=== PATIENT | female | born 1975 | race Caucasian/White ===

== ENCOUNTER 2017-10-10 16:00 | Emergency (ER) | payer OTHER, SELFPAY ==
[2017-10-10 16:00] VITALS: BP 149/91; PULSE 110; RESP 20; TEMP 36.8; O2SAT 100; BMI 36.4
[2017-10-10 16:13] VITALS: BP 146/99; PULSE 102; RESP 11; O2SAT 100
--- NOTE | 2017-10-10 16:24 | ED.DCSUM_ITS ---
- ER Visit Summary Date of Service: 10/10/17 Chief Complaint: Rash and itching History of Present Illness: The patient is a 42 F status post epidural steroid injection for back pain on Friday. [place] [facility] [place] states he was doing well the next day she developed a rash and itching. She denies any weakness in her lower extremities. She denies any bowel or bladder incontinence. She denies any fever. She has had a prior microdiscectomy of the lumbar spine. Physical Examination: Pulse is 100% room air no signs of hypoxia. No distress. HEENT exam. Posterior pharynx normal. Trouble swallowing or breathing. Lips are unremarkable. Tongue is not significantly swollen. Neck nontender. Lungs clear to auscultation bilaterally. No wheezing. Heart regular rhythm no murmur rate about 100. Abdomen soft nontender. She is moving all 4 extremities. Neurovascular intact. Cauda equina. No saddle anesthesia. She does have a rash that is sandpaper red minimally raised on her upper extremities. No petechiae or purpura. Back unremarkable. Epidural injection site appears normal. Neurologic exam normal. No sensory or motor deficits. Test Results: None Emergency Department Course and Treatment: Patient be treated with oral steroids. This is most like an allergic reaction may or may not be due to the injection. Otherwise she looks well. She and her understand we do not do allergy testing in the ER. Treatment Plan: Prednisone first dose in the year and then 40 mg a day as needed. Disposition: Discharged Impression: Acute rash with itching secondary to allergic reaction. This note was generated with [employer] dictation software. It may contain incorrect words, spelling, and punctuation that were not noted in review of the chart prior to signing ED Disposition - Plan for ED Patient: Chief Complaint: Numb/Ting Referrals: Eriberto Means MD [Primary Care Provider] -
--- NOTE | 2017-10-10 16:24 | ED.DEP ---
ED Disposition - Plan for ED Patient: Disposition: Home or Assisted Living Chief Complaint: Numb/Ting Instructions: ED Drug React Allergic Prescriptions: Prednisone [Deltasone] 40 mg PO DAILY 6 Days tab Referrals: Eriberto Means MD [Primary Care Provider] - As Needed Additional Instructions: His own daily for the allergic reaction. If the rash resolves and itching resolved you can stop taking the prednisone. Benadryl as needed for the itching. Return if feeling a lot worse but otherwise this should improve and resolve over the next 72 hours.
[2017-10-10] MEDS: predniSONE 20 MG Tablet 60 MG PO (16:33)
[2017-10-10 16:34] VITALS: BP 130/86; PULSE 98; RESP 17
[2017-10-10 16:38] VITALS: PULSE 98; RESP 17; O2SAT 100
== END 2017-10-10 16:38 | disposition home or self-care (01) ==
LOC: ED 16:30
PROVIDERS: Emergency Provider Emergency Medicine; Family Provider Family Medicine; PCP Family Medicine
DX: R21 Rash and other nonspecific skin eruption (principal); T78.40XA Allergy, unspecified, initial encounter; X58.XXXA Exposure to other specified factors, initial encounter; I10 Essential (primary) hypertension; Z79.52 Long term (current) use of systemic steroids; Z79.899 Other long term (current) drug therapy; Z90.710 Acquired absence of both cervix and uterus
CPT/HCPCS: 99283

== ENCOUNTER → 2019-10-06 | Outpatient (CLI) | payer OTHER, SELFPAY ==
[2019-10-06 16:37] VITALS: BMI 36.4
== END | disposition home or self-care (01) ==
LOC: LABSPEC 18:08
PROVIDERS: PCP Family Medicine; Referring Provider Physician Assistant; Visit Provider Physician Assistant
DX: Z20.828 Contact with and (suspected) exposure to other viral communicable diseases (principal); R50.9 Fever, unspecified; R05 Cough; M79.10 Myalgia, unspecified site; R11.0 Nausea; R19.7 Diarrhea, unspecified; R53.83 Other fatigue; R51 Headache
CPT/HCPCS: 87635; G2023; U0003

== ENCOUNTER 2022-04-27 08:51 | Emergency (ER) | payer OTHER, SELFPAY ==
[2022-04-27 08:52] VITALS: BP 142/98; PULSE 100; RESP 20; TEMP 36.3; O2SAT 100; BMI 34.9
--- NOTE | 2022-04-27 09:07 | RAD_ITS ---
STUDY: X-RAY - RIGHT KNEE REASON FOR EXAM: Female, 47 years old. pain TECHNIQUE: 4 view(s) of the knee. COMPARISON: None. FINDINGS: Normal visualized distal femur. Normal visualized proximal tibia and fibula. Normal proximal tibiofibular articulation. There is no demonstrated fracture. There is moderate degenerative arthrosis of the medial femorotibial compartment with moderate joint space narrowing. There is mild degenerative arthrosis of the lateral femorotibial compartment. There is mild degenerative arthrosis of the patellofemoral articulation. There is a moderate volume joint effusion. Threaded interference screw related to ACL graft noted in the midline of the tibial plateau. The soft tissue structures are unremarkable. RAD/Knee 4 or More Views IMPRESSION: Degenerative arthrosis. Electronically Signed: Bradley Jerome MD at 10:05 EST ,
--- NOTE | 2022-04-27 09:20 | EDS_ITS ---
HPI History of Present Illness Chief Complaint: Lower Extremity Injury Narrative Narrative: 47-year-old female past medical history of hypertension, hormone replacement therapy, and depression presents with injury to her right knee that she sustained yesterday. She works at a school. She has had problems with her knee in the past where she was receiving intra-articular gel injections but has not had problems for quite some time and is not currently seeing an orthopod. She states that they were playing basketball in the gymnasium, picking up basketballs, and she went for rebound and barely jumped off the ground. When she came down, she had pain in the lateral aspect of her right knee, and somewhat medially more in the distal quadriceps area. Throughout the night, she noticed more swelling on the top part of her knee. She now has pain with movement especially flexion and extension of the right knee. She did not fall or hit her head, no loss of consciousness, no other injury. Her states he has noticed more swelling and her pain has been increasing in her distal quadriceps area. She denies any chest pain or shortness of breath, no other symptoms. Pain is worse with movement, relieved by nothing. She took Celebrex with minimal relief of her symptoms. Of note, patient states that she had ACL repair previously. [facility] Medical History Back pain Hemorrhoids HTN (hypertension) Knee pain Mediastinal mass Stomach ulcer Home Medications paroxetine HCl 20 mg tablet 20 mg PO DAILY 02/04/13 [History Last Taken Unknown] estradiol 1 mg tablet 1 mg PO DAILY 03/01/14 [History Last Taken Unknown] hydrochlorothiazide 25 mg tablet PO 10/06/19 [History Last Taken Unknown] Allergy/AdvReac Type Severity Reaction Status Date / Time ciprofloxacin Allergy Unknown Verified 04/27/22 08:55 erythromycin base Allergy Unknown Verified 04/27/22 08:55 [Erythromycin Base] morphine Allergy Shortness Verified 04/27/22 08:55 of breath Penicillins Allergy Unknown Verified 04/27/22 08:55 tramadol Allergy Hives Verified 04/27/22 08:55 cefaclor [From Ceclor] AdvReac Nausea Verified 04/27/22 08:55 hydrocodone bitartrate AdvReac Nausea/Vom/ Verified 04/27/22 08:55 [From Vicodin] Diarrhea meperidine HCl [From Demerol] AdvReac Nausea Verified 04/27/22 08:55 Family History Father Cancer Grandmother Cancer Brother Heart disease Surgical History History of appendectomy History of back surgery History of cholecystectomy History of hernia repair History of hysterectomy History of open heart surgery History of repair of ACL Social History Smoking Status: Former smoker alcohol intake: never ROS ROS ED ROS Narrative Constitutional: No fever, no chills. HEENT: No sore throat. No neck pain. No loss of vision. No rhinorrhea. Cardiovascular: No chest pain. No palpitations. No pedal edema. Respiratory: No cough, no shortness of breath. Abdominal: No abdominal pain. No nausea. No vomiting. Genitourinary: No dysuria. No hematuria. Musculoskeletal: No myalgias. Right knee arthralgia, pain worse with movement. Neurologic: No headaches. No dizziness. No lightheadedness. Skin: No rash. No change in color. Psychiatric: No depression. No anxiety. EXAM Physical Exam Narrative Exam Narrative: Afebrile. Vital signs noted. HEENT: Normocephalic. Atraumatic. PERRL, EOMI. Neck soft and supple. No point tenderness or step off. Cardiovascular: Regular rate and rhythm. No murmurs, rubs, or gallops appreciated. Respiratory: No tachypnea. Lungs clear to auscultation bilaterally. Gastrointestinal: Abdomen soft, nontender, with normoactive bowel sounds. No rebound or guarding. Neurological: Awake. Alert. Nonfocal, nonlateralizing. Skin: No rash. Normal color. No pallor. Musculoskeletal: No pedal edema. Decreased range of motion of right knee, especially flexion and extension. Unable to lift leg completely off bed, but can lift a few inches. Able to temporarily hold leg elevated off bed. Neurovascularly intact distally with EHL intact, and palpable dorsalis pedis pulse on right. Const Vital Signs: 04/27/22 08:52 Temperature 97.4 F L Temperature Source Temporal Pulse Rate 100 Respiratory Rate 20 H Blood Pressure 142/98 H Blood Pressure Mean 112 Pulse Ox 100 Oxygen Delivery Method Room Air MDM MDM MDM Narrative Medical decision making narrative: In the differential diagnosis is internal derangement of knee including meniscal tear versus quadricep strain versus tear. I did obtain x-rays of the right knee and on my interpretation see degenerative changes and postsurgical changes with surgical screw from the ACL repair. She does have a joint effusion. Upon repeat examination, she requested Tylenol. She states she does not do well with narcotic pain medication and declines a prescription. I do feel that she may have more of an internal derangement of her right knee with possible meniscal tear. I discussed patient with Dr. Graham with orthopedics. I do not feel that emergent arthrocentesis is indicated, and I am not concerned for septic joint at this time as there is no erythema and she is afebrile. I feel she be discharged safely home for further evaluation and treatment by orthopedics. She is to call the office on Friday for an appointment to be seen next week. She already has her own crutches and she will be placed in a knee immobilizer and continue her analgesics, ice, and elevation at home. Return instructions to the emergency department were reviewed. Disposition is discharged home in stable condition. Radiography Diagnostic Testing: Clinical Impression(s) from Imaging Studies Knee X-Ray 04/27/22 09:07 IMPRESSION: Degenerative arthrosis. Electronically Signed: Bradley Jerome MD at 10:05 EST Reading Location ID and State: [address] [place] [address] , Service support , Discharge Plan Triage Chief Complaint: Lower Extremity Injury ED Provider: Rodriguez Fay Dx/Rx/DC Orders Clinical Impression: Effusion of knee joint right, Internal derangement of right knee, Knee pain, right Instructions: ED Meniscal Injury Knee Poss, ED Knee Pain of Uncertain Cause, ED Knee Effusion, ED Knee Sprain Prescriptions: No Action hydrochlorothiazide 25 mg tablet PO paroxetine HCl 20 MG tablet 20 mg PO DAILY estradiol 1 MG tablet 1 mg PO DAILY Primary Care Provider: Eriberto Means Referrals: Eriberto Means MD [Primary Care Provider] - Braden Graham DO [Med Staff - Active Staff] - 3-5 Days Activity Restrictions/Additional Instructions: Use your knee immobilizer and crutches until seen by orthopedics. You may remove it for bathing and sleeping. Continue your Celebrex and Tylenol as needed. Follow-up with orthopedics by calling the office on Friday for an appointment to be seen next week. Disposition Disposition: Home, Self Care
== END 2022-04-27 11:09 | disposition home or self-care (01) ==
PROVIDERS: Emergency Provider Emergency Medicine; PCP Family Medicine; Visit Provider Emergency Medicine
DX: M23.8X1 Other internal derangements of right knee (principal); X50.1XXA Overexertion from prolonged static or awkward postures, initial encounter; I10 Essential (primary) hypertension; Z79.899 Other long term (current) drug therapy; Z87.891 Personal history of nicotine dependence
CPT/HCPCS: 73564; 99282